=== PATIENT | female | born 1950 | race Caucasian/White ===

== ENCOUNTER 2019-10-21 05:42 | Day surgery (SDC) | payer MEDICARE, OTHER ==
[~2019-10-21] VITALS: Ht 165.1 cm; Wt 92.1 kg
[~2019-10-21 05:42] MED LIST: ASPI-555 PO; ATOR40TA71 PO; CALC-1062 PO; FISH1CAP63 PO; FURO20TA4 PO; IBUP-2077 PO; LACT460C PO; METF-444 PO; MV-M1TAB20 PO; POLY17PO4 PO
[2019-10-21] MEDS ORDERED: SODIUM CHLORIDE 0.9% 1000ML 1,000 ML IV ONE (06:24)
[2019-10-21 06:36] VITALS: BP 149/67
[2019-10-21] MEDS ORDERED: PROPOFOL 10 MG/ML 20ML VIAL IV ONE (07:02)
[2019-10-21] MEDS ORDERED: LIDOCAINE HCL 1% 20 ML VIAL ONE (07:03)
[2019-10-21] MEDS ORDERED: GLYCOPYRROLATE 0.2 MG/ML 5 ML VIAL ONE (07:15)
[2019-10-21 07:33] VITALS: BP 104/59
[2019-10-21 07:38] VITALS: BP 115/55
[2019-10-21 07:43] VITALS: BP 105/55
[2019-10-21 07:48] VITALS: BP 103/53
== END 2019-10-21 08:00 | disposition home or self-care (01) ==
LOC: ENDO 05:42 → DAH 05:42 → ENDO 08:00
PROVIDERS: ATTEND Internal Medicine Gastroenterology
DX: Z12.11 Encounter for screening for malignant neoplasm of colon (principal); K22.8 Other specified diseases of esophagus; K29.50 Unspecified chronic gastritis without bleeding; K21.9 Gastro-esophageal reflux disease without esophagitis; I10 Essential (primary) hypertension; E11.9 Type 2 diabetes mellitus without complications; I25.10 Atherosclerotic heart disease of native coronary artery without angina pectoris; I45.10 Unspecified right bundle-branch block; E78.5 Hyperlipidemia, unspecified; E66.9 Obesity, unspecified; I25.2 Old myocardial infarction; Z86.010 Personal history of colon polyps; Z95.0 Presence of cardiac pacemaker; Z96.642 Presence of left artificial hip joint; Z90.710 Acquired absence of both cervix and uterus; Z68.34 Body mass index [BMI] 34.0-34.9, adult; Z79.84 Long term (current) use of oral hypoglycemic drugs; Z79.82 Long term (current) use of aspirin; Z79.899 Other long term (current) drug therapy
CPT/HCPCS: 43239; 82948 ×2; 88305; 93005; A4215; A4221; A4222; A4223; A4606; A4620; A4663; G0105; J2704; J3490; J7030